=== PATIENT | male | born 1965 | race Caucasian/White ===

== ENCOUNTER 2023-12-24 17:00 | Observation (INO) | payer OTHER, SELFPAY ==
[2023-12-24] VITALS (18 sets, daily range): BP systolic 110–152; BP diastolic 51–88; PULSE 63–91; RESP 13–22; TEMP 36.5–36.7; O2SAT 96–100; BMI 28.6
--- NOTE | ~2023-12-24 | XR_ITS ---
CHEST RADIOGRAPH CLINICAL HISTORY: life vest went off . COMPARISON: 06/10/2014. TECHNIQUE: Single portable view of the chest. FINDINGS Sternal wires and mediastinal clips are identified, the wires are midline and intact. The remainder of the cardiomediastinal silhouette is otherwise unremarkable. The lungs are clear. Visualized osseous structures and soft tissues are unremarkable. IMPRESSION: No focal infiltrate or effusion. Reviewed, dictated and finalized at location A.
--- NOTE | 2023-12-24 17:44 | ECG_ITS ---
Test Date: 2023-12-24 18:00:41 Measurements Intervals [place] Rate: 81 P: 2 AR: 136 QRS: -24 QRSD: 137 T: 85 QT: 393 QTc: 458 Interpretive Statements SINUS RHYTHM WITH OCCASIONAL VENTRICULAR PREMATURE COMPLEXES INTRAVENTRICULAR CONDUCTION DELAY [130+ ms QRS DURATION] No previous ECG available for comparison Electronically Signed On 12-25-2023 15:26:01 CDT by Chanelle Bhatia M.D.
--- NOTE | 2023-12-24 17:52 | ED_ITS ---
HPI - General Adult General Chief complaint: Unspecified Stated complaint: life vest tried to shock me a few times Time Seen by Provider: 12/24/23 17:47 Source: patient and family Mode of arrival: ambulatory Limitations: no limitations History of Present Illness HPI narrative: 58 YEARS OLD WHITE MALE STATUS POST 2 CORONARY STENT PLACEMENT November IN [place]. PATIENT IS TELLING ME THAT HE HAS EJECTION FRACTION WAS 25, PATIENT WAS DISCHARGED ON LIFEVEST, THE PATIENT IS TELLING ME THAT HE WAS DOING QUITE A BIT OF PHYSICAL ACTIVITY FOR THE 1ST TIME SINCE HAD 3 CORONARY STENTS INCLUDING LIFTING AND PUSHING, HIS LIFE VEST GIVE HIM A SHOCK ALARM 4 TIMES OVER A PERIOD OF 10 MINUTES AND H TIME PATIENT WAS ABLE TO DECLINE DISCHARGE BY PUSHING ON THE LIFE VEST BUTTON. PATIENT DENIED ANY SYMPTOMS BEFORE THE ALARM OR DURING THE ALARM OR AFTER THE ALARM. ON ARRIVAL TO THE ED PATIENT IS ASYMPTOMATIC. I WAS ABLE TO LOOK AT HIS SMART PHONE TO SEE THE RHYTHM DURING THE DISTAL ARM WHICH HIGH LIKELY VENTRICUL AR TACHYCARDIA. Related Data Home Medications Medication Instructions Recorded Confirmed aspirin 81 mg tablet,delayed 81 mg PO DAILY 12/24/23 release (Adult Low Dose Aspirin) atorvastatin 40 mg tablet 40 mg PO QHS 12/24/23 carvedilol 3.125 mg tablet 3.125 mg PO Q12H 12/24/23 dapagliflozin propanediol 10 mg 10 mg PO DAILY 12/24/23 tablet (Farxiga) lisinopril 5 mg tablet 5 mg PO DAILY 12/24/23 methocarbamol 750 mg tablet 750 mg PO TID PRN 12/24/23 semaglutide 0.25 mg or 0.5 mg (2 0.25 mg subcut WEEKLY 12/24/23 mg/3 mL) subcutaneous pen injector ticagrelor 90 mg tablet 90 mg PO Q12H 12/24/23 Allergies Allergy/AdvReac Type Severity Reaction Status Date / Time metoprolol Allergy Intermediate RASH/ITCHIN Verified 12/24/23 17:01 G Review of Systems Review of Systems: All systems reviewed & are unremarkable except as noted in HPI and below Exam Narrative: GENERAL APPEARANCE: WELL-DEVELOPED, WELL-NOURISHED SKIN: NORMAL COLOR HEAD: NORMOCEPHALIC, NONTRAUMATIC EYES: CLEAR CONJUNCTIVA ENT: OROPHARYNX NORMAL, EARS NORMAL, NOSE NORMAL NECK: SUPPLE, NONTENDER CHEST AND RESPIRATORY: AIRWAY PATENT, NO RESPIRATORY DISTRESS, NO ACCESSORY MUSCLE USE HEART: REGULAR RATE/RHYTHM ABDOMEN: SOFT, NONTENDER, NO ORGANOMEGALY, QUIET BOWEL SOUNDS VASCULAR: NORMAL PERIPHERAL PULSES, NORMAL CAPILLARY REFILL. 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, NO GROSS MOTOR DEFICIT Course Reevaluation(s) Reevaluation #1: PATIENT STILL ASYMPTOMATIC, WOULD LIKE TO GET A MEAL BEFORE GOING UPSTAIRS Date: 12/24/23 Time: 19:18 Consultations Consultation #1: DR POLLARD Date: 12/24/23 Vital Signs Vital signs: Vital Signs Temperature 36.5 C 12/24/23 17:06 Pulse Rate 63 12/24/23 17:06 Respiratory Rate 16 12/24/23 17:06 Blood Pressure 152/74 H 12/24/23 17:06 Pulse Oximetry 99 12/24/23 17:06 Temperature 36.5 C 12/24/23 17:06 Pulse Rate 63 12/24/23 17:06 Respiratory Rate 18 12/24/23 17:48 Blood Pressure 152/74 H 12/24/23 17:06 Pulse Oximetry 100 12/24/23 17:48 Medical Decision Making MDM Narrative Medical decision making narrative: PATIENT WAS ABOUT TO GET SHOCKED BY HIS LIFE VEST UP TO 4 TIMES OVER A PERIOD OF 10 MINUTES WHILE DOING STRENUOUS PHYSICAL ACTIVITY. PATIENT IS ASYMPTOMATIC ON ARRIVAL TO THE ED VITAL SIGNS ARE STABLE PHYSICAL EXAMINATION SHOWED NO SIGNIFICANT ABNORMALITIES DIFFERENTIAL DIAGNOSIS INCLUDE CARDIAC ARRHYTHMIA, CORONARY ARTERY DISEASE, ELECTROLYTE IMBALANCE, DEHYDRATION BLOOD WORKUP TODAY SHOWED NO ACUTE ABNORMALITIES EKG ON ARRIVAL SHOWED NORMAL SINUS RHYTHM AT 81 BEATS PER MINUTE WITH OCCASIONAL PVCS, LEFT BUNDLE-BRANCH BLOCK, LEFT VENTRICULAR HYPERTROPHY, , NO PREVIOUS EKG AVAILABLE FOR COMPARISON Differential Diagnosis Differential Diagnosis: ABOVE Medical Records Medical records reviewed: Yes I reviewed the external patient's medical records. Vital Signs Vital Signs: Vital Signs Temperature 36.5 C 12/24/23 17:06 Pulse Rate 63 12/24/23 17:06 Respiratory Rate 16 12/24/23 17:06 Blood Pressure 152/74 H 12/24/23 17:06 Pulse Oximetry 99 12/24/23 17:06 Temperature 36.5 C 12/24/23 17:06 Pulse Rate 63 12/24/23 17:06 Respiratory Rate 18 12/24/23 17:48 Blood Pressure 152/74 H 12/24/23 17:06 Pulse Oximetry 100 12/24/23 17:48 Imaging Data Radiologist's impression: Impressions Chest X-Ray 12/24/23 18:31 IMPRESSION: No focal infiltrate or effusion. ECG Data EKG #1: ECG completion date: 12/24/23 Interpretation: NORMAL SINUS RHYTHM AT 81 BEATS PER MINUTE, WITH OCCASIONAL PVCS, LEFT VENTRICULAR HYPERTROPHY, LEFT BUNDLE-BRANCH BLOCK, NO PREVIOUS EKG AVAILABLE FOR COMPARISON Critical Care Time Critical Care Time Critical Care Time: No Discharge Plan Discharge Clinical Impression: Cardiac arrhythmia Patient Disposition: Still a Patient Condition: Stable Prescriptions: No Action aspirin [Adult Low Dose Aspirin] 81 mg tablet,delayed release (DR/EC) 81 mg PO DAILY atorvastatin 40 mg tablet 40 mg PO QHS carvedilol 3.125 mg tablet 3.125 mg PO Q12H Rx Instructions: must administer with a meal/food dapagliflozin propanediol [Farxiga] 10 mg tablet 10 mg PO DAILY lisinopril 5 mg tablet 5 mg PO DAILY methocarbamol 750 mg tablet 750 mg PO TID PRN semaglutide 0.25 mg or 0.5 mg (2 mg/3 mL) pen injector 0.25 mg subcut WEEKLY Rx Instructions: for 4 weeks ticagrelor 90 mg tablet 90 mg PO Q12H Follow-up/Referrals: Marisol,Nato Matson MD [Primary Care Provider] -
[2023-12-24 18:11] LABS: Basophils Percent Auto 0.6 % (0.2-1.2); Eosinophils Absolute Auto 0.3 K/mm3 (0-0.3); Eosinophils Percent Auto 5.2 % (0-4.4); Hematocrit 46.7 % (42.0-52.0); Hemoglobin 17.2 g/dL (14.0-18.0); Immature Granulocyte Absolute 0.04 K/mm3 (0.00-0.031); Immature Granulocyte Percent A 0.6 % (0-0.5); Lymphocytes Absolute Auto 2.53 K/mm3 (0.9-3.2); Lymphocytes Percent Auto 38.4 % (18.3-44.2); Mean Corpuscular HGB Conc 36.8 g/dl (32-36); Mean Corpuscular Hemoglobin 32.3 pg (26-34); Mean Corpuscular Volume 87.8 fl (80-100); Monocytes Absolute Auto 0.5 K/mm3 (0.1-0.6); Monocytes Percent Auto 7.9 % (2.6-8.5); Neutrophils Absolute Auto 3.1 K/mm3 (1.3-6.7); Neutrophils Percent Auto 47.3 % (45.5-73.1); Platelet Count Result 158 k/mm3 (150-375); Red Blood Count 5.32 M/mm3 (4.6-6.20); Red Cell Distribution Width 13.2 % (11.5-14.5); White Blood Count 6.6 K/mm3 (4.5-10.0)
[2023-12-24 18:20] LABS: Alanine Aminotransferase 33 U/L (6-50); Albumin Level 4.7 g/dL (3.5-5.1); Alkaline Phosphatase 68 U/L (38-126); Anion Gap 10 mmol/L (4-12); Aspartate Amino Transferase 26 U/L (17-59); Bilirubin,Total 1.3 mg/dL (0.2-1.3); Blood Urea Nitrogen 13 mg/dL (9-20); Calcium 9.1 mg/dL (8.4-10.2); Carbon Dioxide 25 mmol/L (22-30); Chloride 102 mmol/L (98-107); Estimated CRCL calculation 89 ml/min; Estimated Glomerular Filt Rate > 60; Glucose 143 mg/dL (65-110); Lipase 198 U/L (23-300); Potassium 3.8 mmol/L (3.4-5.0); Sodium 137 mmol/L (137-145)
[2023-12-24 18:21] LABS: Prothrombin Time 13.2 Seconds (11.1-14.7)
[2023-12-24 18:22] LABS: Partial Thromboplastin Time 24.3 Seconds (22.3-36.8)
[2023-12-24 18:32] LABS: Troponin I < 0.012 ng/mL (0.000-0.034)
[2023-12-24] MEDS: AMIODARONE 150 MG/D5W 100 ML 150 MG/100 ML BAG 600 MG IV CONT (18:47)
[2023-12-24] MEDS: AMIODARONE 360 MG/D5W 200 ML 360 MG/200 ML BAG 33.33 MG IV CONT (18:58)
--- NOTE | 2023-12-24 19:06 | P.CONCA_ITS ---
Assessment and Plan Assessment and plan (1) PVT (paroxysmal ventricular tachycardia): Code(s): I47.29 - Other ventricular tachycardia Status: Acute Assessment and Plan: Alerted from Life Vest. Due to ICM. Start Amiodarone drip as per protocol for 24 hours then transition to PO Amiodarone. (2) CAD (coronary artery disease): Code(s): I25.10 - Atherosclerotic heart disease of [place] coronary artery without angina pectoris Status: Acute Assessment and Plan: 12/03/23 [facility] by Dr. Shweta Linder: Prox LAD 20%, mid LAD 99%, OM 70%; PCI to mid LAD and PCI to OM1. Continue dual antiplatelets. (3) Hypertension: Code(s): I10 - Essential (primary) hypertension Status: Acute Assessment and Plan: Stable. (4) Dyslipidemia: Code(s): E78.5 - Hyperlipidemia, unspecified Status: Acute Assessment and Plan: On Atorvastatin. (5) Ischemic cardiomyopathy: Code(s): I25.5 - Ischemic cardiomyopathy Status: Acute Assessment and Plan: In [place], [place] Echo EF 25-29%, apical anterior and apical lateral wall are akinetic, mild TR. Will continue Life Vest upon discharge. Continue Coreg, Jardiance. Stop Lisinopril and will let it wash out for 36 hours and then will start tomorrow night Entresto. History of Present Illness History of Present Illness Consult date/time: 12/24/23 19:06 Reason For Visit: life vest tried to shock me a few times Narrative: 58 yr old man presents to ER with alerts from life vest indicating shocks. He has a history of NSTEMI s/p 2 stents in [place], [place] on 12/03/23, ICM with EF 25- 29%, DM, hypertension, dyslipidemia. present at bedside. He was vacationing in [place] when he had chest pain and went to ER and had NSTEMI. He was discharged home with life vest in place to prevent sudden cardiac arrest. Reports this afternoon at 4:30 pm his life vest alerted him that shock was going to be given but he declined it and it happened 4 times within 10 minutes. Life Vest called him and reported his HR was at 170 bpm during that time. Denies chest pain, sob, palpitations, orthopnea, PND, edema, dizziness. Review of Systems Review of Systems: All systems reviewed & are unremarkable except as noted in HPI and below Constitutional: Constitutional: Reports as per HPI, Denies chills and Denies fever(s) Cardiovascular: Cardiovascular: Reports as per HPI, Denies chest pain, Denies rapid heart rate and Denies irregular heart rhythm Respiratory: Respiratory: Reports as per HPI and Denies dyspnea Gastrointestinal: Gastrointestinal: Reports as per HPI and Denies abdominal pain Genitourinary: Genitourinary: Reports as per HPI and Denies dysuria Musculoskeletal: Musculoskeletal: Reports as per HPI Neurologic: Reports as per HPI, Denies dizziness and Denies syncope Meds Home Medications and Allergies Home Medications Medication Instructions Recorded Confirmed Type aspirin 81 mg tablet,delayed 81 mg PO DAILY 12/24/23 History release (Adult Low Dose Aspirin) atorvastatin 40 mg tablet 40 mg PO QHS 12/24/23 History carvedilol 3.125 mg tablet 3.125 mg PO Q12H 12/24/23 History dapagliflozin propanediol 10 mg 10 mg PO DAILY 12/24/23 History tablet (Farxiga) lisinopril 5 mg tablet 5 mg PO DAILY 12/24/23 History methocarbamol 750 mg tablet 750 mg PO TID PRN 12/24/23 History semaglutide 0.25 mg or 0.5 mg (2 0.25 mg subcut WEEKLY 12/24/23 History mg/3 mL) subcutaneous pen injector ticagrelor 90 mg tablet 90 mg PO Q12H 12/24/23 History Allergies Allergy/AdvReac Type Severity Reaction Status Date / Time metoprolol Allergy Intermediate RASH/ITCHIN Verified 12/24/23 17:01 G Vital Signs Vital Signs - 24 hr 12/24/23 17:06 12/24/23 17:48 12/24/23 18:08 Temperature 97.7 F Pulse Rate 63 83 Respiratory Rate 16 18 20 Blood Pressure 152/74 H 121/77 Pulse Oximetry 99 100 100 12/24/23 18:47 12/24/23 18:57 12/24/23 18:58 Temperature Pulse Rate 87 84 81 Respiratory Rate Blood Pressure 110/51 L 110/71 110/71 Pulse Oximetry Exam Const: General: cooperative, healthy appearing and comfortable Resp: Auscultation: clear to auscultation bilaterally, no crackles, no rales, no rhonchi and no wheezes Cardio: Rate: regular rate Rhythm: regular rhythm Heart sounds: no murmurs Peripheral pulses: dorsalis pedis present GI: GI Palp: No abdominal tenderness and Yes Soft to palpation Neuro: General: oriented to person, oriented to place and oriented to time Extrem: Right lower extremity: no edema Left lower extremity: no edema Results Labs and Meds 12/24/23 18:04 12/24/23 18:04 Lab results: Cardiac Enzymes 12/24/23 Range/Units 18:04 AST 26 (17-59) U/L Troponin I < 0.012 (0.000-0.034) ng/mL Coagulation 12/24/23 Range/Units 18:04 PT 13.2 (11.1-14.7) Seconds APTT 24.3 (22.3-36.8) Seconds CBC 12/24/23 Range/Units 18:04 WBC 6.6 (4.5-10.0) K/mm3 RBC 5.32 (4.6-6.20) M/mm3 Hgb 17.2 (14.0-18.0) g/dL Hct 46.7 (42.0-52.0) % Plt Count 158 (150-375) k/mm3 Lymph # (Auto) 2.53 (0.9-3.2) K/mm3 [place] # (Auto) 0.5 (0.1-0.6) K/mm3 Eos # (Auto) 0.3 (0-0.3) K/mm3 Baso # (Auto) 0.0 (0.0-0.1) K/mm3 Comprehensive Metabolic Panel 12/24/23 Range/Units 18:04 Sodium 137 (137-145) mmol/L Potassium 3.8 (3.4-5.0) mmol/L Chloride 102 (98-107) mmol/L Carbon Dioxide 25 (22-30) mmol/L BUN 13 (9-20) mg/dL Creatinine 0.80 (0.7-1.3) mg/dL Glucose 143 H (65-110) mg/dL Calcium 9.1 (8.4-10.2) mg/dL AST 26 (17-59) U/L ALT 33 (6-50) U/L Alkaline Phosphatase 68 (38-126) U/L Total Protein 8.0 (6.3-8.2) g/dL Albumin 4.7 (3.5-5.1) g/dL Intake and Output 12/24/23 12/24/23 12/24/23 07:59 15:59 23:59 Intake Total 100 Balance 100 Intake: IV 100 Amiodarone 150 mg/D5w 100 ml 100 150 mg In 100 ml @ 15 MG/MIN 600 mls/hr IV CONT .Q10M ONE Rx #:[id number] Patient Weight 12/24/23 23:59 Weight 87.3 kg
[2023-12-24 19:34] LABS: Magnesium 2.2 mg/dL (1.6-2.3)
--- NOTE | 2023-12-24 19:44 | PM.IMHP ---
H&P: HPI History of Present Illness Date/Time: 12/24/23 19:44 Chief Complaint: Attempted LifeVest discharge x4. Narrative: 58-year-old male with a H obesity, CAD, ischemic cardiomyopathy, hypertension, dyslipidemia, gzj-lqlezuu-dpzvyblan diabetes mellitus who presents reporting his LifeVest discharge 4 times on the day of admission 12/24/2023. He had no symptoms. He reports doing some strenuous activity today. He canceled the LifeVest discharge and called EMS and was brought to [facility] ER. EMS reports a heart rate of 170. Further recent history as follows: The patient was vacationing in [place] and at the beginning of December 2023 he had chest pain and went to an ER and found to have NSTEMI. At that time the patient had a cardiac catheterization and he is status post 2 stents on 12/03/2023. Echo revealed ischemic cardiomyopathy with EF 25-30%. This is all new diagnosis to the patient. He was discharged on a LifeVest. He has been compliant with his medications since then but not his exercise restriction. The patient showed his iPhone to the ER physician Dr. Cannon and it is reported this appeared to be V-tach. The patient lives in [place] and his PCP is not in her network but he was set to see cardiology Dr. Garnett in a few weeks and therefore Dr. Garnett was consulted. Review of Systems Review of Systems: All systems reviewed & are unremarkable except as noted in HPI and below (Subjective) Meds Home Medications and Allergies Home Medications Medication Instructions Recorded Confirmed Type aspirin 81 mg tablet,delayed 81 mg PO DAILY 12/24/23 History release (Adult Low Dose Aspirin) atorvastatin 40 mg tablet 40 mg PO QHS 12/24/23 History carvedilol 3.125 mg tablet 3.125 mg PO Q12H 12/24/23 History dapagliflozin propanediol 10 mg 10 mg PO DAILY 12/24/23 History tablet (Farxiga) lisinopril 5 mg tablet 5 mg PO DAILY 12/24/23 History methocarbamol 750 mg tablet 750 mg PO TID PRN 12/24/23 History semaglutide 0.25 mg or 0.5 mg (2 0.25 mg subcut WEEKLY 12/24/23 History mg/3 mL) subcutaneous pen injector ticagrelor 90 mg tablet 90 mg PO Q12H 12/24/23 History Allergies Allergy/AdvReac Type Severity Reaction Status Date / Time metoprolol Allergy Intermediate RASH/ITCHIN Verified 12/24/23 17:01 G Vital Signs Vital Signs - 24 hr 12/24/23 17:06 12/24/23 17:48 12/24/23 18:08 Temperature 97.7 F Pulse Rate 63 83 Respiratory Rate 16 18 20 Blood Pressure 152/74 H 121/77 Pulse Oximetry 99 100 100 12/24/23 18:47 12/24/23 18:57 12/24/23 18:58 Temperature Pulse Rate 87 84 81 Respiratory Rate Blood Pressure 110/51 L 110/71 110/71 Pulse Oximetry 12/24/23 17:27 12/24/23 17:46 12/24/23 18:28 Temperature Pulse Rate 91 85 85 Respiratory Rate 20 20 22 H Blood Pressure 138/59 L 121/62 110/51 L Pulse Oximetry 97 96 97 12/24/23 18:41 12/24/23 19:01 12/24/23 19:12 Temperature Pulse Rate 87 83 85 Respiratory Rate 13 15 Blood Pressure 110/71 144/88 H Pulse Oximetry 98 98 12/24/23 19:40 Temperature Pulse Rate 86 Respiratory Rate 14 Blood Pressure 127/85 Pulse Oximetry 97 Exam Const: General: comfortable and no acute distress Other: A&O x3 HENMT: Mouth: Yes moist mucous membranes Eyes: Pupils: Equal, round and reactive pupils present Neck: Neck: supple Resp: Effort & Inspection: normal respiratory effort Auscultation: clear to auscultation bilaterally Cardio: Rate: regular rate Rhythm: regular rhythm Heart sounds: no gallops, no murmurs and no rubs GI: GI Palp: Yes Soft to palpation and No Tenderness to palpation present (GI) Other: Protuberant abdomen : General: Yes bladder normal to palpation Neuro: Motor exam (neuro): 5/5 motor strength present throughout Extrem: General: no edema Other: Pedal pulses palpable H&P: Results Labs Labs: Short CBC 12/24/23 Range/Units 18:04 WBC 6.6 (4.5-10.0) K/mm3 Hgb 17.2 (14.0-18.0) g/dL Hct 46.7 (42.0-52.0) % Plt Count 158 (150-375) k/mm3 [facility] 12/24/23 18:04 Sodium 137 Potassium 3.8 Chloride 102 Carbon Dioxide 25 BUN 13 Creatinine 0.80 Glucose 143 H Calcium 9.1 Cardiac Enzymes 12/24/23 Range/Units 18:04 Troponin I < 0.012 (0.000-0.034) ng/mL Liver Function 12/24/23 Range/Units 18:04 Total Bilirubin 1.3 (0.2-1.3) mg/dL AST 26 (17-59) U/L ALT 33 (6-50) U/L Alkaline Phosphatase 68 (38-126) U/L Albumin 4.7 (3.5-5.1) g/dL Assessment and Plan Assessment and plan (1) Cardiac arrhythmia: Code(s): I49.9 - Cardiac arrhythmia, unspecified Status: Acute (2) Ischemic cardiomyopathy: Code(s): I25.5 - Ischemic cardiomyopathy Status: Acute (3) Diabetes: Code(s): E11.9 - Type 2 diabetes mellitus without complications Status: Acute (4) Dyslipidemia: Code(s): E78.5 - Hyperlipidemia, unspecified Status: Acute (5) Hypertension: Code(s): I10 - Essential (primary) hypertension Status: Acute (6) CAD (coronary artery disease): Code(s): I25.10 - Atherosclerotic heart disease of [place] coronary artery without angina pectoris Status: Acute (7) PVT (paroxysmal ventricular tachycardia): Code(s): I47.29 - Other ventricular tachycardia Status: Acute Plan 58-year-old male with a [facility] obesity, CAD, ischemic cardiomyopathy, hypertension, dyslipidemia, acu-gdgdzjs-pwbxkrwrm diabetes mellitus who presents reporting his LifeVest discharge 4 times on the day of admission 12/24/2023. He had no symptoms. He reports doing some strenuous activity today. He canceled the LifeVest discharge and called EMS and was brought to [facility] ER. EMS reports a heart rate of 170. Further recent history as follows: The patient was vacationing in [place] and at the beginning of December 2023 he had chest pain and went to an ER and found to have NSTEMI. At that time the patient had a cardiac catheterization and he is status post 2 stents on 12/03/2023. Echo revealed ischemic cardiomyopathy with EF 25-30%. This is all new diagnosis to the patient. He was discharged on a LifeVest. He has been compliant with his medications since then but not his exercise restriction. The patient showed his iPhone to the ER physician Dr. Cannon and it is reported this appeared to be V-tach. The patient lives in [place] and his PCP is not in her network but he was set to see cardiology Dr. Garnett in a few weeks and therefore Dr. Garnett was consulted. ----- EKG in the ER demonstrating normal sinus rhythm with multiple PVCs. Intraventricular conduction delay. Potassium 3.8. Will check a magnesium as well. Amiodarone infusion started. Cardiology consultation appreciated. Follow the recommendations. Agree with those. Patient reports he is on Brilinta so will restart that in addition to the aspirin which has already been started. Continue atorvastatin. Discontinue lisinopril and start Entresto. Continue Coreg and Jardiance. Plan to transition to p.o. amiodarone in the morning. Admit to medical floor with telemetry. Accu-Cheks a.c. HS and low-dose insulin sliding scale. ----- Saline lock IV, cardiac diet, carbohydrate consistent diet SCDs Patient wishes to be full code Lives with spouse in [place]. Denies recreational drug use, tobacco abuse, alcohol use. Denies large amount of caffeine intake. Denies energy drinks consumption. At baseline he is independent and does not use assistive devices for ambulation. Hospitalist MIPS Advance Care Plan I have confirmed that the patient's Advanced Care Plan is present, code status is documented, or surrogate decision maker is listed in patient medical record.: Yes Medication Reconciliation I have utilized all available resources to obtain, update and review the patients current medications (includes all prescriptions, OTC, herbals, cannabis, and nutritional supplements).: Yes
--- NOTE | 2023-12-24 20:40 | ADMGEN ---
This patient, Ender Emmanuel, was admitted to IMU Room 211-01. Patient/family oriented to hospital policies and general routines including ID bracelet, bed and alarms, visiting hours, pain management, procedures, bathroom and other care routines, personal items, smoking policy, room service/diet, and visiting hours. Information on how to activate the Rapid Response Team has been discussed. Patient/Family are encouraged to report perceived risks to care and to ask questions if they do not understand what they are told or what they should do.
[2023-12-24 20:58] LABS: Glucose Point of Care 260 mg/dl (65-105)
--- NOTE | 2023-12-24 21:36 | ADMGEN ---
This patient, Ender Emmanuel, was admitted to IMU Room 211-01 on 12/24/23 at 2040. Patient/family oriented to hospital policies and general routines including ID bracelet, bed and alarms, visiting hours, pain management, procedures, bathroom and other care routines, personal items, smoking policy, room service/diet, and visiting hours. Information on how to activate the Rapid Response Team has been discussed. Patient/Family are encouraged to report perceived risks to care and to ask questions if they do not understand what they are told or what they should do.
[2023-12-24] MEDS: carvediloL 3.125 MG TABLET PO (22:45)
[2023-12-24] MEDS: TICAGRELOR 90 MG TABLET PO (22:46)
[2023-12-24] MEDS: INSULIN ASPART (*BKC) 100 UNITS/ML SUB-Q (22:46)
[2023-12-25] VITALS (16 sets, daily range): BP systolic 96–118; BP diastolic 52–78; PULSE 71–85; RESP 16–18; TEMP 36.4–37.1; O2SAT 95–99; BMI 27.0
[2023-12-25] MEDS: AMIODARONE 360 MG/D5W 200 ML 360 MG/200 ML BAG 16.67 MG IV CONT ×2 (00:44→12:38)
[2023-12-25 05:18] LABS: Anion Gap 7 mmol/L (4-12); Blood Urea Nitrogen 13 mg/dL (9-20); Calcium 8.5 mg/dL (8.4-10.2); Carbon Dioxide 28 mmol/L (22-30); Chloride 101 mmol/L (98-107); Estimated CRCL calculation 80 ml/min; Estimated Glomerular Filt Rate > 60; Glucose 129 mg/dL (65-110); Magnesium 2.2 mg/dL (1.6-2.3); Potassium 3.8 mmol/L (3.4-5.0); Sodium 136 mmol/L (137-145)
--- NOTE | 2023-12-25 06:20 | ECG_ITS ---
Test Date: 2023-12-25 08:16:48 Measurements Intervals [place] Rate: 73 P: 14 [place]: 146 QRS: 89 QRSD: 138 T: 78 QT: 440 QTc: 488 Interpretive Statements SINUS RHYTHM WITH OCCASIONAL VENTRICULAR PREMATURE COMPLEXES INDETERMINATE AXIS INTRAVENTRICULAR CONDUCTION DELAY [130+ ms QRS DURATION] ANTERIOR MYOCARDIAL INFARCTION , OF INDETERMINATE AGE [40+ ms Q WAVE AND/OR ST/T ABNORMALITY IN V3/V4] Compared to ECG 12/24/2023 18:00:41 NO SIGNIFICANT CHANGES Electronically Signed On 12-25-2023 15:36:02 CDT by Chanelle Bhatia M.D.
--- NOTE | 2023-12-25 07:55 | PM.PNCARD ---
Progress Note: A&P Assessment and Plan (1) PVT (paroxysmal ventricular tachycardia): Code(s): I47.29 - Other ventricular tachycardia Status: Acute Assessment and Plan: Alerted from Life Vest. Due to ICM. Started Amiodarone drip as per protocol for 24 hours then transition to PO Amiodarone at 200 mg BID. Check EKG, TSH. If telemetry shows no arrhythmias by this evening will stop Amiodarone drip. F/U with me within a week. (2) CAD (coronary artery disease): Code(s): I25.10 - Atherosclerotic heart disease of [place] coronary artery without angina pectoris Status: Acute Assessment and Plan: 12/03/[address] [facility] [address] Shweta Linder: Prox LAD 20%, mid LAD 99%, OM 70%; PCI to mid LAD and PCI to OM1. Check lipid panel. Continue dual antiplatelets, uninterrupted. (3) Hypertension: Code(s): I10 - Essential (primary) hypertension Status: Acute Assessment and Plan: Stable. (4) Dyslipidemia: Code(s): E78.5 - Hyperlipidemia, unspecified Status: Acute Assessment and Plan: On Atorvastatin. (5) Ischemic cardiomyopathy: Code(s): I25.5 - Ischemic cardiomyopathy Status: Acute Assessment and Plan: In [place], [place] Echo EF 25-29%, apical anterior and apical lateral wall are akinetic, mild TR. Will continue Life Vest upon discharge. Continue Coreg, Jardiance. Stopped Lisinopril and will let it wash out for 36 hours and then will start Entresto 24-26 mg BID starting this evening. Subjective Date/time seen: 12/25/23 07:55 Interval history: Denies chest pain, sob, palpitations. Exam Const: General: cooperative, healthy appearing and comfortable Orientation/consciousness: oriented to person, oriented to place and oriented to time Resp: Auscultation: clear to auscultation bilaterally, no crackles, no rales, no rhonchi and no wheezes Cardio: Rate: regular rate Rhythm: regular rhythm Heart sounds: no murmurs Peripheral pulses: dorsalis pedis present Neuro: General: oriented to person, oriented to place and oriented to time Extrem: Right lower extremity: no edema Left lower extremity: no edema Objective Data Vital Signs Vital Signs: Vital Signs - 24 hr 12/24/23 17:06 12/24/23 17:48 12/24/23 18:08 Temperature 97.7 F Pulse Rate 63 83 Respiratory Rate 16 18 20 Blood Pressure 152/74 H 121/77 Pulse Oximetry 99 100 100 Oxygen Delivery 12/24/23 18:47 12/24/23 18:57 12/24/23 18:58 Temperature Pulse Rate 87 84 81 Respiratory Rate Blood Pressure 110/51 L 110/71 110/71 Pulse Oximetry Oxygen Delivery 12/24/23 17:27 12/24/23 17:46 12/24/23 18:28 Temperature Pulse Rate 91 85 85 Respiratory Rate 20 20 22 H Blood Pressure 138/59 L 121/62 110/51 L Pulse Oximetry 97 96 97 Oxygen Delivery 12/24/23 18:41 12/24/23 19:01 12/24/23 19:12 Temperature Pulse Rate 87 83 85 Respiratory Rate 13 15 Blood Pressure 110/71 144/88 H Pulse Oximetry 98 98 Oxygen Delivery 12/24/23 19:40 12/24/23 20:21 12/24/23 20:43 Temperature 98.1 F Pulse Rate 86 88 79 Respiratory Rate 14 17 18 Blood Pressure 127/85 122/60 130/75 Pulse Oximetry 97 96 97 Oxygen Delivery 12/24/23 20:00 12/24/23 22:45 12/25/23 00:12 Temperature 98.1 F Pulse Rate 84 79 75 Respiratory Rate 18 Blood Pressure 103/60 Pulse Oximetry 96 Oxygen Delivery 12/25/23 00:00 12/25/23 00:00 12/24/23 22:00 Temperature Pulse Rate 73 73 78 Respiratory Rate 18 Blood Pressure Pulse Oximetry 96 Oxygen Delivery Room Air 12/25/23 00:00 12/25/23 00:44 12/25/23 02:00 Temperature Pulse Rate 73 78 75 Respiratory Rate 16 Blood Pressure 103/58 L 96/52 L Pulse Oximetry 95 Oxygen Delivery 12/25/23 02:00 12/25/23 04:10 12/25/23 04:00 Temperature 98.6 F Pulse Rate 75 73 71 Respiratory Rate 16 Blood Pressure 96/52 L 109/59 L Pulse Oximetry 97 Oxygen Delivery 12/25/23 04:00 12/25/23 04:00 12/25/23 06:00 Temperature Pulse Rate 73 71 Respiratory Rate 16 Blood Pressure 118/70 Pulse Oximetry 97 Oxygen Delivery Room Air 12/25/23 06:00 Temperature Pulse Rate 71 Respiratory Rate Blood Pressure 118/70 Pulse Oximetry Oxygen Delivery Intake/Output Intake/Output: Intake & Output 12/22/23 12/23/23 12/24/23 12/25/23 23:59 23:59 23:59 23:59 Intake Total 201.1 704.4 Output Total 300 Balance 201.1 404.4 Meds/Results Medications: Active Medications Generic Name Dose Route Start Last Admin Trade Name Freq PRN Reason Stop Dose Admin Acetaminophen 650 mg 12/24/23 19:29 Acetaminophen 325 Mg Tablet PO Q4H PRN Mild Pain (1-3) or Fever Aspirin 81 mg 12/25/23 08:00 Aspirin 81 Mg Chewable Tablet PO DAILY@0800 [facility] Atorvastatin Calcium 40 mg 12/25/23 21:00 Atorvastatin 40 Mg Tablet PO QHS [facility]1983 Carvedilol 3.125 mg 12/24/23 21:00 12/24/23 22:45 Carvedilol 3.125 Mg Tablet PO 3.125 mg Q12H [facility]1983 Administration Dextrose 12.5 gm 12/24/23 19:43 Dextrose 50% 25 Gm/50 Ml Syringe IV PUSH PRN PRN Hypoglycemia Protocol Empagliflozin 10 mg 12/25/23 09:00 Empagliflozin 10 Mg Tablet PO DAILY [facility] Glucagon 1 mg 12/24/23 19:43 Glucagon For Inj 1 Mg Vial IM PRN PRN Hypoglycemia Protocol Glucose 15 gm 12/24/23 19:43 Glucose Oral Gel 15 Gm Of Glucse In 37.5 Gm Tube PO PRN PRN Hypoglycemia Protocol Amiodarone HCl/Dextrose 360 mg in 200 mls @ 16.667 mls/hr 12/25/23 00:09 12/25/23 06:00 Nexterone 360 Mg/D5w 200 Ml IV CONT 0.5 mg/min .Q12H FARIDEH 16.67 mls/hr Infusion 0.5 MG/MIN Dextrose 1,000 mls @ 100 mls/hr 12/24/23 19:43 Dextrose 5% 1,000 Ml IVPB PRN PRN Hypoglycemia Protocol Insulin Aspart 2 - 5 units 12/25/23 08:00 Insulin Aspart (*Bkc) 100 Units/Ml SUB-Q TIDWM [facility] Protocol Insulin Aspart 1 - 2 units 12/24/23 21:00 12/24/23 22:46 Insulin Aspart (*Bkc) 100 Units/Ml SUB-Q 1 units HS FARIDEH Administration Protocol Sacubitril/Valsartan 1 tab 12/25/23 21:00 Sacubitril/Valsartan 24-26 Mg Tablet PO Q12HR FARIDEH Ticagrelor 90 mg 12/24/23 21:00 12/24/23 22:46 Ticagrelor 90 Mg Tablet PO 90 mg Q12H FARIDEH Administration Radiology Results: ITS Impressions Chest X-Ray 12/24/23 18:31 IMPRESSION: No focal infiltrate or effusion. Labs Labs: Laboratory Results - last 24 hr 12/24/23 12/24/23 12/24/23 18:03 18:04 20:54 WBC 6.6 RBC 5.32 Hgb 17.2 Hct 46.7 MCV 87.8 MCH 32.3 MCHC 36.8 H RDW 13.2 Plt Count 158 MPV 10.0 Immature Gran % (Auto) 0.6 H Neut % (Auto) 47.3 Lymph % (Auto) 38.4 [place] % (Auto) 7.9 Eos % (Auto) 5.2 H Baso % (Auto) 0.6 Lymph # (Auto) 2.53 [place] # (Auto) 0.5 Eos # (Auto) 0.3 Baso # (Auto) 0.0 Abs Immat Gran (auto) 0.04 H Absolute Neuts (auto) 3.1 Absolute Nucleated RBC 0.000 Nucleated RBC % 0.0 PT 13.2 INR 1.0 APTT 24.3 Sodium 137 Potassium 3.8 Chloride 102 Carbon Dioxide 25 Anion Gap 10 BUN 13 Creatinine 0.80 Estim Creat Clear Calc 89 Estimated GFR > 60 Glucose 143 H POC Capillary Glucose 260 H Calcium 9.1 Magnesium 2.2 Total Bilirubin 1.3 AST 26 ALT 33 Alkaline Phosphatase 68 Troponin I < 0.012 Total Protein 8.0 Albumin 4.7 Lipase 198 12/25/23 04:40 WBC RBC Hgb Hct MCV MCH MCHC RDW Plt Count MPV Immature Gran % (Auto) Neut % (Auto) Lymph % (Auto) [place] % (Auto) Eos % (Auto) Baso % (Auto) Lymph # (Auto) [place] # (Auto) Eos # (Auto) Baso # (Auto) Abs Immat Gran (auto) Absolute Neuts (auto) Absolute Nucleated RBC Nucleated RBC % PT INR APTT Sodium 136 L Potassium 3.8 Chloride 101 Carbon Dioxide 28 Anion Gap 7 BUN 13 Creatinine 0.90 Estim Creat Clear Calc 80 Estimated GFR > 60 Glucose 129 H POC Capillary Glucose Calcium 8.5 Magnesium 2.2 Total Bilirubin AST ALT Alkaline Phosphatase Troponin I Total Protein Albumin Lipase
[2023-12-25 09:07] LABS: Glucose Point of Care 149 mg/dl (65-105)
[2023-12-25] MEDS: ASPIRIN 81 MG CHEWABLE TABLET PO (09:39)
[2023-12-25] MEDS: carvediloL 3.125 MG TABLET PO (09:39)
[2023-12-25] MEDS: TICAGRELOR 90 MG TABLET PO (09:40)
[2023-12-25] MEDS: EMPAGLIFLOZIN 10 MG TABLET PO (09:52)
--- NOTE | 2023-12-25 09:58 | PM.IMPN ---
Progress Note: A&P Assessment and Plan (1) Cardiac arrhythmia: Code(s): I49.9 - Cardiac arrhythmia, unspecified Status: Acute (2) Ischemic cardiomyopathy: Code(s): I25.5 - Ischemic cardiomyopathy Status: Acute (3) Diabetes: Code(s): E11.9 - Type 2 diabetes mellitus without complications Status: Acute (4) Dyslipidemia: Code(s): E78.5 - Hyperlipidemia, unspecified Status: Acute (5) Hypertension: Code(s): I10 - Essential (primary) hypertension Status: Acute (6) CAD (coronary artery disease): Code(s): I25.10 - Atherosclerotic heart disease of [place] coronary artery without angina pectoris Status: Acute (7) PVT (paroxysmal ventricular tachycardia): Code(s): I47.29 - Other ventricular tachycardia Status: Acute Plan 58-year-old male with a H obesity, CAD, ischemic cardiomyopathy, hypertension, dyslipidemia, [id number] diabetes mellitus who presents reporting his LifeVest discharge 4 times on the day of admission 12/24/2023. He had no symptoms. He reports doing some strenuous activity today. He canceled the LifeVest discharge and called EMS and was brought to [facility] ER. EMS reports a heart rate of 170. Further recent history as follows: The patient was vacationing in [place] and at the beginning of December 2023 he had chest pain and went to an ER and found to have NSTEMI. At that time the patient had a cardiac catheterization and he is status post 2 stents on 12/03/2023. Echo revealed ischemic cardiomyopathy with EF 25-30%. This is all new diagnosis to the patient. He was discharged on a LifeVest. He has been compliant with his medications since then but not his exercise restriction. The patient showed his iPhone to the ER physician Dr. Cannon and it is reported this appeared to be V-tach. The patient lives in [place] and his PCP is not in her network but he was set to see cardiology Dr. Garnett in a few weeks and therefore Dr. Garnett was consulted. ----- EKG in the ER demonstrating normal sinus rhythm with multiple PVCs. Intraventricular conduction delay. Potassium 3.8. Will check a magnesium as well. Amiodarone infusion started. Cardiology consultation appreciated. Follow the recommendations. Agree with those. Patient reports he is on Brilinta so will restart that in addition to the aspirin which has already been started. Continue atorvastatin. Discontinue lisinopril and start Entresto. Continue Coreg and Jardiance. Plan to transition to p.o. amiodarone in the morning. Admit to medical floor with telemetry. Accu-Cheks a.c. HS and low-dose insulin sliding scale. 12/24: Cardiology was consulted, started on Amiodarone drip, if no arrhythmias by this evening will d/c the drip and will be transitioned to oral.Will continue Life Vest upon discharge. Also d/c lisinopril and start Entresto 24-26 mg BID by this evening. ----- Saline lock IV, cardiac diet, carbohydrate consistent diet SCDs Patient wishes to be full code Lives with spouse in [place]. Denies recreational drug use, tobacco abuse, alcohol use. Denies large amount of caffeine intake. Denies energy drinks consumption. At baseline he is independent and does not use assistive devices for ambulation. Subjective Date/time seen: 12/25/23 09:58 Interval history: 58-year-old male with a H obesity, CAD, ischemic cardiomyopathy, hypertension, dyslipidemia, [id number]-akeebionw diabetes mellitus who presents reporting his LifeVest discharge 4 times on the day of admission 12/24/2023. He had no symptoms. He reports doing some strenuous activity today. He canceled the LifeVest discharge and called EMS and was brought to [facility] ER. EMS reports a heart rate of 170. Further recent history as follows: The patient was vacationing in [place] and at the beginning of December 2023 he had chest pain and went to an ER and found to have NSTEMI. At that time the patient had a cardiac catheterization and he is status post 2 stents on 12/03/2023. Echo revealed ischemic cardiomyopathy with EF 25-30%. This is all new diagnosis to the patient. He was discharged on a LifeVest. He has been compliant with his medications since then but not his exercise restriction. The patient showed his iPhone to the ER physician Dr. Cannon and it is reported this appeared to be V-tach. The patient lives in [place] and his PCP is not in her network but he was set to see cardiology Dr. Garnett in a few weeks and therefore Dr. Garnett was consulted. Cardiology was consulted, started on Amiodarone drip, if no arrhythmias by this evening will d/c the drip and will be transitioned to oral.Will continue Life Vest upon discharge. Also d/c lisinopril and start Entresto 24-26 mg BID by this evening. Exam Const: General: comfortable and no acute distress Other: A&O x3 HENMT: Mouth: Yes moist mucous membranes Eyes: Pupils: Equal, round and reactive pupils present Neck: Neck: supple Resp: Effort & Inspection: normal respiratory effort Auscultation: clear to auscultation bilaterally Cardio: Rate: regular rate Rhythm: regular rhythm Heart sounds: no gallops, no murmurs and no rubs GI: Other: Protuberant abdomen : General: Yes bladder normal to palpation Neuro: Cranial nerves: Yes Equal, round and reactive pupils present Motor exam (neuro): 5/5 motor strength present throughout Extrem: General: no edema Other: Pedal pulses palpable Objective Data Vital Signs Vital Signs: Vital Signs - 24 hr 12/24/23 17:06 12/24/23 17:48 12/24/23 18:08 Temperature 97.7 F Pulse Rate 63 83 Respiratory Rate 16 18 20 Blood Pressure 152/74 H 121/77 Pulse Oximetry 99 100 100 Oxygen Delivery 12/24/23 18:47 12/24/23 18:57 12/24/23 18:58 Temperature Pulse Rate 87 84 81 Respiratory Rate Blood Pressure 110/51 L 110/71 110/71 Pulse Oximetry Oxygen Delivery 12/24/23 17:27 12/24/23 17:46 12/24/23 18:28 Temperature Pulse Rate 91 85 85 Respiratory Rate 20 20 22 H Blood Pressure 138/59 L 121/62 110/51 L Pulse Oximetry 97 96 97 Oxygen Delivery 12/24/23 18:41 12/24/23 19:01 12/24/23 19:12 Temperature Pulse Rate 87 83 85 Respiratory Rate 13 15 Blood Pressure 110/71 144/88 H Pulse Oximetry 98 98 Oxygen Delivery 12/24/23 19:40 12/24/23 20:21 12/24/23 20:43 Temperature 98.1 F Pulse Rate 86 88 79 Respiratory Rate 14 17 18 Blood Pressure 127/85 122/60 130/75 Pulse Oximetry 97 96 97 Oxygen Delivery 12/24/23 20:00 12/24/23 22:45 12/25/23 00:12 Temperature 98.1 F Pulse Rate 84 79 75 Respiratory Rate 18 Blood Pressure 103/60 Pulse Oximetry 96 Oxygen Delivery 12/25/23 00:00 12/25/23 00:00 12/24/23 22:00 Temperature Pulse Rate 73 73 78 Respiratory Rate 18 Blood Pressure Pulse Oximetry 96 Oxygen Delivery Room Air 12/25/23 00:00 12/25/23 00:44 12/25/23 02:00 Temperature Pulse Rate 73 78 75 Respiratory Rate 16 Blood Pressure 103/58 L 96/52 L Pulse Oximetry 95 Oxygen Delivery 12/25/23 02:00 12/25/23 04:10 12/25/23 04:00 Temperature 98.6 F Pulse Rate 75 73 71 Respiratory Rate 16 Blood Pressure 96/52 L 109/59 L Pulse Oximetry 97 Oxygen Delivery 12/25/23 04:00 12/25/23 04:00 12/25/23 06:00 Temperature Pulse Rate 73 71 Respiratory Rate 16 Blood Pressure 118/70 Pulse Oximetry 97 Oxygen Delivery Room Air 12/25/23 06:00 12/25/23 08:00 12/25/23 08:00 Temperature 98.3 F Pulse Rate 71 73 85 Respiratory Rate 18 Blood Pressure 118/70 115/76 Pulse Oximetry 98 Oxygen Delivery 12/25/23 09:39 Temperature Pulse Rate 81 Respiratory Rate Blood Pressure Pulse Oximetry Oxygen Delivery Intake/Output Intake/Output: Intake & Output 12/22/23 12/23/23 12/24/23 12/25/23 23:59 23:59 23:59 23:59 Intake Total 201.1 944.4 Output Total 300 Balance 201.1 644.4 Meds/Results Medications: Active Medications Generic Name Dose Route Start Last Admin Trade Name Freq PRN Reason Stop Dose Admin Acetaminophen 650 mg 12/24/23 19:29 Acetaminophen 325 Mg Tablet PO Q4H PRN Mild Pain (1-3) or Fever Aspirin 81 mg 12/25/23 08:00 12/25/23 09:39 Aspirin 81 Mg Chewable Tablet PO 81 mg DAILY@0800 [facility] Administration Atorvastatin Calcium 40 mg 12/25/23 21:00 Atorvastatin 40 Mg Tablet PO QHS [facility] Carvedilol 3.125 mg 12/24/23 21:00 12/25/23 09:39 Carvedilol 3.125 Mg Tablet PO 3.125 mg Q12H FARIDEH Administration Dextrose 12.5 gm 12/24/23 19:43 Dextrose 50% 25 Gm/50 Ml Syringe IV PUSH PRN PRN Hypoglycemia Protocol Empagliflozin 10 mg 12/25/23 09:00 12/25/23 09:52 Empagliflozin 10 Mg Tablet PO 10 mg DAILY FARIDEH Administration Glucagon 1 mg 12/24/23 19:43 Glucagon For Inj 1 Mg Vial IM PRN PRN Hypoglycemia Protocol Glucose 15 gm 12/24/23 19:43 Glucose Oral Gel 15 Gm Of Glucse In 37.5 Gm Tube PO PRN PRN Hypoglycemia Protocol Amiodarone HCl/Dextrose 360 mg in 200 mls @ 16.667 mls/hr 12/25/23 00:09 12/25/23 06:00 Nexterone 360 Mg/D5w 200 Ml IV CONT 0.5 mg/min .Q12H FARIDEH 16.67 mls/hr Infusion 0.5 MG/MIN Dextrose 1,000 mls @ 100 mls/hr 12/24/23 19:43 Dextrose 5% 1,000 Ml IVPB PRN PRN Hypoglycemia Protocol Insulin Aspart 2 - 5 units 12/25/23 08:00 12/25/23 09:39 Insulin Aspart (*Bkc) 100 Units/Ml SUB-Q Not Given TIDWM FARIDEH Protocol Insulin Aspart 1 - 2 units 12/24/23 21:00 12/24/23 22:46 Insulin Aspart (*Bkc) 100 Units/Ml SUB-Q 1 units HS FARIDEH Administration Protocol Sacubitril/Valsartan 1 tab 12/25/23 21:00 Sacubitril/Valsartan 24-26 Mg Tablet PO Q12HR [facility] Ticagrelor 90 mg 12/24/23 21:00 12/25/23 09:40 Ticagrelor 90 Mg Tablet PO 90 mg Q12H FARIDEH Administration Radiology Results: ITS Impressions Chest X-Ray 12/24/23 18:31 IMPRESSION: No focal infiltrate or effusion. Labs Labs: Laboratory Results - last 24 hr 12/24/23 12/24/23 12/24/23 18:03 18:04 20:54 WBC 6.6 RBC 5.32 Hgb 17.2 Hct 46.7 MCV 87.8 MCH 32.3 MCHC 36.8 H RDW 13.2 Plt Count 158 MPV 10.0 Immature Gran % (Auto) 0.6 H Neut % (Auto) 47.3 Lymph % (Auto) 38.4 [place] % (Auto) 7.9 Eos % (Auto) 5.2 H Baso % (Auto) 0.6 Lymph # (Auto) 2.53 [place] # (Auto) 0.5 Eos # (Auto) 0.3 Baso # (Auto) 0.0 Abs Immat Gran (auto) 0.04 H Absolute Neuts (auto) 3.1 Absolute Nucleated RBC 0.000 Nucleated RBC % 0.0 PT 13.2 INR 1.0 APTT 24.3 Sodium 137 Potassium 3.8 Chloride 102 Carbon Dioxide 25 Anion Gap 10 BUN 13 Creatinine 0.80 Estim Creat Clear Calc 89 Estimated GFR > 60 Glucose 143 H POC Capillary Glucose 260 H Calcium 9.1 Magnesium 2.2 Total Bilirubin 1.3 AST 26 ALT 33 Alkaline Phosphatase 68 Troponin I < 0.012 Total Protein 8.0 Albumin 4.7 Lipase 198 12/25/23 12/25/23 04:40 07:34 WBC RBC Hgb Hct MCV MCH MCHC RDW Plt Count MPV Immature Gran % (Auto) Neut % (Auto) Lymph % (Auto) [place] % (Auto) Eos % (Auto) Baso % (Auto) Lymph # (Auto) [place] # (Auto) Eos # (Auto) Baso # (Auto) Abs Immat Gran (auto) Absolute Neuts (auto) Absolute Nucleated RBC Nucleated RBC % PT INR APTT Sodium 136 L Potassium 3.8 Chloride 101 Carbon Dioxide 28 Anion Gap 7 BUN 13 Creatinine 0.90 Estim Creat Clear Calc 80 Estimated GFR > 60 Glucose 129 H POC Capillary Glucose 149 H Calcium 8.5 Magnesium 2.2 Total Bilirubin AST ALT Alkaline Phosphatase Troponin I Total Protein Albumin Lipase Hospitalist MIPS Advance Care Plan I have confirmed that the patient's Advanced Care Plan is present, code status is documented, or surrogate decision maker is listed in patient medical record.: Yes Medication Reconciliation I have utilized all available resources to obtain, update and review the patients current medications (includes all prescriptions, OTC, herbals, cannabis, and nutritional supplements).: Yes
[2023-12-25 11:28] LABS: Glucose Point of Care 141 mg/dl (65-105)
[2023-12-25 16:38] LABS: Glucose Point of Care 121 mg/dl (65-105)
[2023-12-25] MEDS: AMIODARONE HCL 200 MG TABLET PO (17:00)
--- NOTE | 2023-12-25 18:08 | P.DS_ITS ---
DS: Admitting Diagnosis Discharge Date 12/25/2023 Admitting Diagnosis ventricular tachycardia DS: Discharge Diagnosis Discharge Diagnosis (1) Cardiac arrhythmia: Code(s): I49.9 - Cardiac arrhythmia, unspecified Status: Acute (2) Ischemic cardiomyopathy: Code(s): I25.5 - Ischemic cardiomyopathy Status: Acute (3) Diabetes: Code(s): E11.9 - Type 2 diabetes mellitus without complications Status: Acute (4) Dyslipidemia: Code(s): E78.5 - Hyperlipidemia, unspecified Status: Acute (5) Hypertension: Code(s): I10 - Essential (primary) hypertension Status: Acute (6) CAD (coronary artery disease): Code(s): I25.10 - Atherosclerotic heart disease of [place] coronary artery without angina pectoris Status: Acute (7) PVT (paroxysmal ventricular tachycardia): Code(s): I47.29 - Other ventricular tachycardia Status: Acute DS: Summary Hospital Course Hospital Course: 58-year-old male with a H obesity, CAD, ischemic cardiomyopathy, hypertension, dyslipidemia, vdn-hzempas-iogafpljz diabetes mellitus who presents reporting his LifeVest discharge 4 times on the day of admission 12/24/2023. He had no symptoms. He reports doing some strenuous activity today. He canceled the LifeVest discharge and called EMS and was brought to [facility] ER. EMS reports a heart rate of 170. Further recent history as follows: The patient was vacationing in [place] and at the beginning of December 2023 he had chest pain and went to an ER and found to have NSTEMI. At that time the patient had a cardiac catheterization and he is status post 2 stents on 12/03/2023. Echo revealed ischemic cardiomyopathy with EF 25-30%. This is all new diagnosis to the patient. He was discharged on a LifeVest. He has been compliant with his medications since then but not his exercise restriction. The patient showed his iPhone to the ER physician Dr. Cannon and it is reported this appeared to be V-tach. The patient lives in [place] and his PCP is not in her network but he was set to see cardiology Dr. Garnett in a few weeks and therefore Dr. Garnett was consulted. EKG in the ER demonstrating normal sinus rhythm with multiple PVCs. Intraventricular conduction delay. Potassium 3.8. Will check a magnesium as well. Amiodarone infusion started. Cardiology consultation appreciated. Follow the recommendations. Agree with those. Patient reports he is on Brilinta so will restart that in addition to the aspirin which has already been started. Continue atorvastatin. Discontinue lisinopril and start Entresto. Continue Coreg and Jardiance. Plan to transition to p.o. amiodarone in the morning. Admit to medical floor with telemetry. Accu-Cheks a.c. HS and low- dose insulin sliding scale. 12/24: Cardiology was consulted, started on Amiodarone drip, since no arrhythmias until this evening will d/c the drip and transitioned to oral.Will continue Life Vest upon discharge. Also d/c lisinopril and started Entresto 24- 26 mg BID by this evening. 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 Also advised to see the senior microsoft consultant for his diabetes and if possible try to initiated Repatha. Status at Discharge Cognitive/behavioral status at discharge: Stable Time Spent with Patient Time attestation: Total time spent providing and/or coordinating discharge services: 45 minutes Exam Const: General: comfortable and no acute distress Other: A&O x3 HENMT: Mouth: Yes moist mucous membranes Eyes: Pupils: Equal, round and reactive pupils present Neck: Neck: supple Resp: Effort & Inspection: normal respiratory effort Auscultation: clear to auscultation bilaterally Cardio: Rate: regular rate Rhythm: regular rhythm Heart sounds: no gallops, no murmurs and no rubs GI: Other: Protuberant abdomen : General: Yes bladder normal to palpation Neuro: Cranial nerves: Yes Equal, round and reactive pupils present Motor exam (neuro): 5/5 motor strength present throughout Extrem: General: no edema Other: Pedal pulses palpable DS: Data Data Completed and Pending Labs on day of discharge: Labs from last 24 hours 12/25/23 12/25/23 12/25/23 16:33 11:18 07:34 WBC RBC Hgb Hct MCV MCH MCHC RDW Plt Count MPV Immature Gran % (Auto) Neut % (Auto) Lymph % (Auto) [place] % (Auto) Eos % (Auto) Baso % (Auto) Lymph # (Auto) [place] # (Auto) Eos # (Auto) Baso # (Auto) Abs Immat Gran (auto) Absolute Neuts (auto) Absolute Nucleated RBC Nucleated RBC % PT INR APTT Sodium Potassium Chloride Carbon Dioxide Anion Gap BUN Creatinine Estim Creat Clear Calc Estimated GFR Glucose POC Capillary Glucose 121 H 141 H 149 H Calcium Magnesium Total Bilirubin AST ALT Alkaline Phosphatase Troponin I Total Protein Albumin Lipase TSH (Reflex) 12/25/23 12/25/23 12/24/23 04:40 04:39 20:54 WBC RBC Hgb Hct MCV MCH MCHC RDW Plt Count MPV Immature Gran % (Auto) Neut % (Auto) Lymph % (Auto) [place] % (Auto) Eos % (Auto) Baso % (Auto) Lymph # (Auto) [place] # (Auto) Eos # (Auto) Baso # (Auto) Abs Immat Gran (auto) Absolute Neuts (auto) Absolute Nucleated RBC Nucleated RBC % PT INR APTT Sodium 136 L Potassium 3.8 Chloride 101 Carbon Dioxide 28 Anion Gap 7 BUN 13 Creatinine 0.90 Estim Creat Clear Calc 80 Estimated GFR > 60 Glucose 129 H POC Capillary Glucose 260 H Calcium 8.5 Magnesium 2.2 Total Bilirubin AST ALT Alkaline Phosphatase Troponin I Total Protein Albumin Lipase TSH (Reflex) 1.680 12/24/23 12/24/23 18:04 18:03 WBC 6.6 RBC 5.32 Hgb 17.2 Hct 46.7 MCV 87.8 MCH 32.3 MCHC 36.8 H RDW 13.2 Plt Count 158 MPV 10.0 Immature Gran % (Auto) 0.6 H Neut % (Auto) 47.3 Lymph % (Auto) 38.4 [place] % (Auto) 7.9 Eos % (Auto) 5.2 H Baso % (Auto) 0.6 Lymph # (Auto) 2.53 [place] # (Auto) 0.5 Eos # (Auto) 0.3 Baso # (Auto) 0.0 Abs Immat Gran (auto) 0.04 H Absolute Neuts (auto) 3.1 Absolute Nucleated RBC 0.000 Nucleated RBC % 0.0 PT 13.2 INR 1.0 APTT 24.3 Sodium 137 Potassium 3.8 Chloride 102 Carbon Dioxide 25 Anion Gap 10 BUN 13 Creatinine 0.80 Estim Creat Clear Calc 89 Estimated GFR > 60 Glucose 143 H POC Capillary Glucose Calcium 9.1 Magnesium 2.2 Total Bilirubin 1.3 AST 26 ALT 33 Alkaline Phosphatase 68 Troponin I < 0.012 Total Protein 8.0 Albumin 4.7 Lipase 198 TSH (Reflex) Discharge Plan Discharge Attending physician on discharge: Oral Prater Consulting providers: Gilson Garnett Discharging Clinician: Oral Prater Anticipated Discharge Date/Time: 12/25/23 18:04 Patient Disposition: Home, Self-Care Activity: as tolerated Diet: heart healthy and diabetic Discharge Instructions: Patient needs continue to wear LifeVest Advised to follow-up with senior microsoft consultant for his diabetic and if possible to start Repatha Patient needs to follow up with 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 Garnett The event of chest pain, palpitation or diaphoresis please visit the ED immediately Patient Instructions: Antibiotic Form, Telemetry Monitoring (GEN), Tachycardia (ED) Stand Alone Forms: General Discharge Information Follow-up/Referrals: Carmen,Nato Matson MD [Primary Care Provider] - 1 Week Gilson Garnett DO [Physician] - 1 Week Discharge Medications: New Jardiance 10 mg Tablet 10 mg PO DAILY Qty: 30 0RF Entresto 24-26 mg Tablet 1 tablet PO Q12HR Qty: 30 0RF amiodarone [Pacerone] 200 mg Tablet 200 mg PO BID Qty: 30 0RF Continued aspirin [Adult Low Dose Aspirin] 81 mg tablet,delayed release (DR/EC) 81 mg PO DAILY atorvastatin 40 mg tablet 40 mg PO QHS carvedilol 3.125 mg tablet 3.125 mg PO Q12H Rx Instructions: must administer with a meal/food dapagliflozin propanediol [Farxiga] 10 mg tablet 10 mg PO DAILY semaglutide 0.25 mg or 0.5 mg (2 mg/3 mL) pen injector 0.25 mg subcut WEEKLY Rx Instructions: for 4 weeks ticagrelor 90 mg tablet 90 mg PO Q12H Date of admission: 12/24/23 19:29 Primary Care Provider: CarmenNato Admitting Provider: Sharon Falcon Attending physician on admission: Sharon Falcon Condition: Stable Hospitalist MIPS Heart Failure (Qualifier) Patient has current or prior documentation of LVEF less than or equal to 40%, or mod/servere depressed LVSF?: Yes IF NO, STOP HERE If Yes, Heart Failure (Qualifier) Patient was prescribed or already taking an Angiotensin-Converting Enzyme (SYLVAIN) Inhibitor, or Antiotensin Receptor [place] (ARB): Yes Patient was prescribed or already taking bisoprolol, carvedilol, or sustained release metoprolol succinate: Yes
[2023-12-25] MEDS: INFLUENZA TRIVALENT VACCINE 45 MCG/0.5 ML SYRINGE IM (18:55)
== END 2023-12-25 19:10 | disposition home or self-care (01) ==
LOC: ANHED 19:29 → ANHIMU 21:47
PROVIDERS: Internal Medicine Cardiovascular Disease; Admitting Provider General Practice; Emergency Provider Emergency Medicine; PCP Family Medicine; Visit Provider General Practice
DX: I47.29 Other ventricular tachycardia (principal); I25.10 Atherosclerotic heart disease of native coronary artery without angina pectoris; I25.2 Old myocardial infarction; I10 Essential (primary) hypertension; E78.5 Hyperlipidemia, unspecified; I25.5 Ischemic cardiomyopathy; E11.9 Type 2 diabetes mellitus without complications; Z79.82 Long term (current) use of aspirin; Z79.84 Long term (current) use of oral hypoglycemic drugs; Z79.01 Long term (current) use of anticoagulants; Z95.811 Presence of heart assist device; Z23 Encounter for immunization
CPT/HCPCS: 36415; 71045; 80048; 80053; 82948; 83690; 83735; 84443; 84484; 85025; 85610; 85730; 90471; 90656; 93005; 96365; 96366; 99285; A9270; G0008; G0378; J0282; J1815

== ENCOUNTER 2024-03-14 07:13 | Outpatient (CLI) | payer OTHER, SELFPAY ==
--- NOTE | 2024-03-14 07:47 | ECHO_ITS ---
Patient Info Name: Ender Emmanuel Age: 59 years : 1965 Gender: Male Ht: 70 in Wt: 192 lbs BSA: 2.09 m2 HR: 68 bpm BP: 148 / 86 mmHg Technical Quality: Fair Exam Date: 03/14/2024 7:59 AM Exam Location: Echo Lab Patient Status: Outpatient Admit Date: 03/14/2024 Staff Ordering Physician: Gilson Garnett DO Driver Examiner: Regina Lewis RDCS, RT Attending Provider: Gilson Garnett DO Exam Type: CA echo dop color flow w con Study Info Complete two-dimensional, color flow and Doppler transthoracic echocardiogram is performed with contrast to opacify the left ventricle and to improve the deliniation of the left ventricle endocardial borders. Strain analysis performed. Contrast/Agitated Saline Contrast/Ag. Saline: Definity Amount: 2.00 ml Administered By: Regina Lewis RDCS New IV Access: Dorsum of Hand and Right Site Condition: No extravasation, Site dressing applied and IV removed Summary 1. Definity contrast administered improved wall motion interpretation. 2. Left ventricular chamber dimension is mildly enlarged. 3. Left ventricular septal wall motion is abnormal with septal motion related to bundle branch block. 4. Left ventricular systolic function is moderately globally reduced, estimated at 40-45%. 5. The left ventricular diastolic function is grade I diastolic dysfunction. 6. E/e' 9 is minimally elevated. 7. Global longitudinal strain is abnormal at -12.2%. 8. There is trace mitral valve regurgitation. 9. There is mild tricuspid valve regurgitation. 10. No pulmonary hypertension, estimated pulmonary arterial systolic pressure is 31 mmHg. Left Ventricle Left ventricular systolic function is moderately globally reduced, estimated at 40-45%. Definity contrast administered improved wall motion interpretation. E/e' 9 is minimally elevated. Global longitudinal strain is abnormal at -12.2%. Left ventricular chamber dimension is mildly enlarged. Left ventricular septal wall motion is abnormal with septal motion related to bundle branch block. The left ventricular diastolic function is grade I diastolic dysfunction. Right Ventricle Right ventricular chamber dimension is normal. Right ventricular systolic function is normal. Left Atria Left atrial chamber dimension is normal. Right Atria Right atrial chamber dimension is normal. Aortic Valve The aortic valve is trileaflet. There is no aortic valve stenosis. There is no aortic valve regurgitation. Pulmonic Valve There is no pulmonic regurgitation. Mitral Valve There is no mitral valve stenosis. There is trace mitral valve regurgitation. Tricuspid Valve There is mild tricuspid valve regurgitation. No pulmonary hypertension, estimated pulmonary arterial systolic pressure is 31 mmHg. Pericardium/Pleural There is no pericardial effusion. Inferior Vena Cava Normal inferior vena cava with >50% collapse upon inspiration consistent with normal right atrial pressure, 5 mmHg. Aorta The aortic root size at the sinus of Valsalva is normal. Left Ventricular Outflow Tract Name Value Normal LVOT 2D LVOT Diameter 1.88 cm LVOT Doppler LVOT Peak Velocity 98.24 cm/s LVOT Peak Gradient 4 mmHg LVOT Mean Gradient 2 mmHg LVOT VTI 18.30 cm LVOT VTI/AV VTI Ratio 1.00 LVOT Stroke Volume 50.87 ml LVOT CO 3.61 l/min LVOT CI 1.73 L/min/m2 Pulmonic Valve Name Value Normal RVOT Doppler RVOT Peak Gradient 2 mmHg PV Doppler PV Peak Velocity 158.87 cm/s PV Peak Gradient 10 mmHg Mitral Valve Name Value Normal MV Doppler MV Decel [place] 336.01 cm/s2 MV PHT 0 s MV Area (PHT) 4.68 cm2 4.00-5.00 MV Diastolic Function MV E Peak Velocity 54.52 cm/s MV A Peak Velocity 96.60 cm/s MV E/A 0.56 MV Decel Time 0 s Tricuspid Valve Name Value Normal TV Regurgitation Doppler TR Peak Velocity 252.97 cm/s TR Peak Gradient 22 mmHg Estimated PAP/RSVP RA Pressure 5 mmHg <=5 PA Systolic Pressure 31 mmHg <36 RV Systolic Pressure 31 mmHg <36 TV Annular TDI TV Lateral Luz Marina s' Velocity 8.26 cm/s 9.50-18.70 Aorta Name Value Normal Ascending Aorta Ao Root Diameter (MM) 3.24 cm Ao Root Diam Index (MM) 1.55 cm/m2 Aortic Valve Name Value Normal AV Doppler AV Peak Velocity 97.35 cm/s AV Peak Gradient 4 mmHg AV Mean Gradient 2 mmHg AV VTI 18.25 cm AV Area (Cont Eq VTI) 2.79 cm2 >=3.00 AV Area (Cont Eq Aaron) 2.81 cm2 AV V1/V2 Ratio 1.01 AV Regurgitation 2D LVOT Area 2.78 cm2 Ventricles Name Value Normal LV Dimensions 2D/MM IVS Diastolic Thickness (2D) 0.75 cm 0.60-1.00 IVS Diastole Thickness (MM) 0.78 cm 0.60-1.00 LVID Diastole (2D) 4.64 cm 4.20-5.80 LVID Diastole (MM) 5.16 cm 4.20-5.80 LVIW Diastolic Thickness (2D) 0.81 cm 0.60-1.00 LVIW Diastolic Thickness (MM) 0.97 cm 0.60-1.00 LVID Systole (2D) 3.69 cm 2.50-4.00 LVID Systole (MM) 3.97 cm 2.50-4.00 LVOT Diameter 1.88 cm LV Mass (2D Cubed) 116.02 g 88.00-224.00 LV Mass Index (2D Cubed) 0.01 g/cm2 0.00-0.01 Relative Wall Thickness (2D) 0.35 LV Mass (MM Cubed) 161.72 g 88.00-224.00 LV Mass Index (MM Cubed) 0.01 g/cm2 0.00-0.01 Relative Wall Thickness (MM) 0.38 LV Fractional Shortening/Ejection Fraction 2D/MM LV Fractional Shortening (2D) 20 % 25-43 LV Fractional Shortening (MM) 23 % 25-43 LV EF (MM Teicholz) 46 % 52-72 LV EF (2D Teicholz) 42 % 52-72 LV Diastolic Volume (4C MOD) 121.17 ml LV EF (4C MOD) 48 % LV Diastolic Volume (2C MOD) 103.98 ml LV EF (2C MOD) 36 % LV Diastolic Volume (BP MOD) 111.72 ml 62.00-150.00 LV Diastolic Volume Index (BP MOD) 0.05 l/m2 0.03-0.07 LV Systolic Volume (BP MOD) 65.38 ml 21.00-61.00 LV Systolic Volume Index (BP MOD) 0.03 l/m2 0.01-0.03 LV EF (BP MOD) 41 % 52-72 LV Diastolic Length (4C) 8.74 cm LV Systolic Length (4C) 7.74 cm LV Stroke Volume (4C MOD) 57.93 ml Atria Name Value Normal LA Dimensions LA Dimension (MM) 3.16 cm 3.00-4.10 LA Volume (4C A-L) 28.02 ml LA Volume (BP A-L) 31.84 ml RA Dimensions RA Area (4C) 12.66 cm2 <=18.00 EchoPAC Name Value Normal AutoEF LVCO_BiP_Q (Itgd3TOS) 3.29 l/min LVEF_BiP_Q (Hqld7BJN) 41 % LVSV_BiP_Q (Qibe2EVM) 47.44 ml LVVED_BiP_Q (Ekbl5YEA) 114.99 ml LVVES_BiP_Q (Tckc2HMK) 67.55 ml HR_4Ch_Q (Akoi4DGA) 71 1/min LVCO_4Ch_Q (Wktt7VKD) 2.93 l/min LVEF_4Ch_Q (Lywv2UOY) 39 % LVLd_4Ch_Q (Yqtz5WFS) 8.76 cm LVLs_4Ch_Q (Eyng0BCT) 8.14 cm LVSV_4Ch_Q (Jjqb6XVJ) 41.09 ml LVVED_4Ch_Q (Djfr2UCF) 104.71 ml LVVES_4Ch_Q (Tbtx7OMI) 63.62 ml HR_2Ch_Q (Pbfw6WGB) 68 1/min LVCO_2Ch_Q (Itac8NHO) 3.64 l/min LVEF_2Ch_Q (Tfea8DQO) 43 % LVLd_2Ch_Q (Ndrd8FNU) 8.61 cm LVLs_2Ch_Q (Hhtq9BCA) 8.27 cm LVSV_2Ch_Q (Vpdr1AMQ) 53.64 ml LVVED_2Ch_Q (Iekh8XDH) 123.77 ml LVVES_2Ch_Q (Txmd7KGS) 70.13 ml BECKIE AA peak sys SL (AWMA) 11 % AAS peak sys SL (AWMA) 14 % AI peak sys SL (AWMA) 13 % AL peak sys SL (AWMA) 12 % AP peak sys SL (AWMA) 22 % peak sys SL (AWMA) 7 % AVC (AWMA) 0 s BA peak sys SL (AWMA) 19 % BAS peak sys SL (AWMA) 17 % BI peak sys SL (AWMA) 10 % BL peak sys SL (AWMA) 17 % BP peak sys SL (AWMA) 12 % BS peak sys SL (AWMA) 13 % G peak SL(A2C) (AWMA) 12 % G peak SL(A4C) (AWMA) 11 % G peak SL(APLAX) (AWMA) 14 % G peak SL(Avg) (AWMA) 12 % MA peak sys SL (AWMA) 17 % MAS peak sys SL (AWMA) 10 % IA peak sys SL (AWMA) 11 % ML peak sys SL (AWMA) 17 % MP peak sys SL (AWMA) 16 % MS peak sys SL (AWMA) 10 % Report Signatures
[2024-03-14] MEDS: PERFLUTREN LIPID MICROSPHERES 1.5 ML VIAL DILUTED TO 10 ML TOTAL VOLUME IV PUSH (08:50)
--- NOTE | 2024-03-14 10:05 | IVDEFINITY ---
Prior to administration of IV Definity the patient was educated on the risks and benefits of the imaging enhancing agent including potential adverse side effects. The patient verbalized understanding. Allergies were verified. No exclusion criteria were identified and at least one of the following inclusion criteria were met: 1) physician request, 2) patient technically difficult to image (per the [place] [employer] Echocardi[employer] guidelines of two or more segments not discernable within the apical view), or 3) questionable left ventricular function. ?
== END 2024-03-14 07:14 | disposition home or self-care (01) ==
LOC: ANHCARD 07:13
PROVIDERS: PCP Family Medicine; Visit Provider Internal Medicine Cardiovascular Disease
DX: I25.5 Ischemic cardiomyopathy (principal); I44.7 Left bundle-branch block, unspecified; I50.20 Unspecified systolic (congestive) heart failure; I07.1 Rheumatic tricuspid insufficiency
CPT/HCPCS: C8929; Q9957

== ENCOUNTER 2024-04-21 11:15 | Outpatient (RCR) | payer OTHER, SELFPAY | END 2024-04-21 13:06 | disposition home or self-care (01) | LOC: ANHCPREHAB 11:15 | PROVIDERS: PCP Family Medicine; Visit Provider Internal Medicine Cardiovascular Disease | DX: Z98.61 Coronary angioplasty status (principal); I50.9 Heart failure, unspecified | CPT/HCPCS: 93798 ==

== ENCOUNTER 2024-07-19 07:32 | Outpatient (CLI) | payer OTHER, SELFPAY ==
--- NOTE | 2024-07-19 07:36 | ECHO_ITS ---
Patient Info Name: Ender Emmanuel Age: 59 years : 1965 Gender: Male Ht: 70 in Wt: 195 lbs BSA: 2.11 m2 HR: 66 bpm BP: 138 / 86 mmHg Technical Quality: Fair Exam Date: 07/19/2024 7:47 AM Patient Status: O Admit Date: 07/19/2024 Exam Type: CA echo dop color flow w con Complete two-dimensional, color flow and Doppler transthoracic echocardiogram is performed with contrast to opacify the left ventricle and to improve the deliniation of the left ventricle endocardial borders. Furnace Cooler: Jamia Greenfield Attending Provider: Gilson Garnett DO Contrast/Agitated Saline Contrast/Ag. Saline: Definity Amount: 2.00 ml IV Access Condition: patent with no signs of infiltration New IV Access: Left Site Condition: IV removed Summary 1. Definity contrast administered improved wall motion interpretation. 2. Left ventricular septal wall motion is abnormal with septal motion related to bundle branch block. 3. Left ventricular chamber dimension is mildly enlarged. 4. The left ventricular diastolic function is grade I diastolic dysfunction. 5. E/e' 7 is not elevated. 6. There is trace mitral valve regurgitation. 7. There is mild tricuspid valve regurgitation. 8. No pulmonary hypertension, estimated pulmonary arterial systolic pressure is 29 mmHg. 9. There is trace pulmonic regurgitation. Left Ventricle E/e' 7 is not elevated. Left ventricular chamber dimension is mildly enlarged. Left ventricular systolic function is mildly reduced, estimated at 45-50. Left ventricular septal wall motion is abnormal with septal motion related to bundle branch block. The left ventricular diastolic function is grade I diastolic dysfunction. Definity contrast administered improved wall motion interpretation. Anteroseptum and septum are hypokinetic. Right Ventricle Right ventricular chamber dimension is normal. Right ventricular systolic function is normal. Left Atria Left atrial chamber dimension is normal. Right Atria Right atrial chamber dimension is normal. Aortic Valve The aortic valve is trileaflet. There is no aortic valve stenosis. There is no aortic valve regurgitation. Pulmonic Valve There is trace pulmonic regurgitation. Mitral Valve There is no mitral valve stenosis. There is trace mitral valve regurgitation. Tricuspid Valve There is mild tricuspid valve regurgitation. No pulmonary hypertension, estimated pulmonary arterial systolic pressure is 29 mmHg. Pericardium/Pleural There is no pericardial effusion. Inferior Vena Cava Normal inferior vena cava with >50% collapse upon inspiration consistent with normal right atrial pressure, 5 mmHg. Aorta The aortic root size at the sinus of Valsalva is normal. Left Ventricular Outflow Tract Name Value Normal LVOT 2D LVOT Diameter 2.1 cm LVOT Doppler LVOT Peak Velocity 106 cm/s LVOT Peak Gradient 4 mmHg LVOT Mean Gradient 2 mmHg LVOT VTI 20 cm LVOT VTI/AV VTI Ratio 0.8 LVOT Stroke Volume 68 ml LVOT CO 14.7 l/min LVOT CI 7.0 l/min/m2 Pulmonic Valve Name Value Normal PV Doppler PV Peak Velocity 155 cm/s PV Peak Gradient 10 mmHg Mitral Valve Name Value Normal MV Diastolic Function MV E Peak Velocity 68 cm/s MV A Peak Velocity 76 cm/s MV E/A 0.9 MV Decel Time (PW) 204 ms MV Annular TDI MV E/e' (Septal) 9.7 MV E/e' (Lateral) 6.8 MV E/e' (Average) 8.2 Tricuspid Valve Name Value Normal TV Regurgitation Doppler TR Peak Velocity 245 cm/s TR Peak Gradient 24 mmHg Estimated PAP/RSVP RA Pressure 5 mmHg <=5 PA Systolic Pressure 29 mmHg <36 RV Systolic Pressure 29 mmHg <36 TV Annular TDI TV Lateral Lu[place] s' Velocity 10.4 cm/s >=9.5 Aorta Name Value Normal Ascending Aorta Ao Root Diameter (MM) 2.8 cm Ao Root Diam Index (MM) 1.3 cm/m2 Aortic Valve Name Value Normal AV Doppler AV Peak Velocity 129 cm/s AV Peak Gradient 7 mmHg AV Mean Gradient 5 mmHg AV VTI 25 cm AV Area (Cont Eq VTI) 2.8 cm2 >=3.0 AV Area (Cont Eq Aaron) 2.8 cm2 AV DI (Aaron) 0.82 AV Regurgitation 2D LVOT Area 3.4 cm2 Ventricles Name Value Normal LV Dimensions 2D/MM IVS Diastolic Thickness (2D) 0.8 cm 0.6-1.0 LVID Diastole (2D) 3.9 cm 4.2-5.8 LVIW Diastolic Thickness (2D) 0.9 cm 0.6-1.0 LVID Systole (2D) 3.1 cm 2.5-4.0 LVOT Diameter 2.1 cm LV Mass (2D Cubed) 97.23 g 88.00-224.00 LV Mass Index (2D Cubed) 46 g/m2 49-115 Relative Wall Thickness (2D) 0.46 <=0.42 LV Fractional Shortening/Ejection Fraction 2D/MM LV Fractional Shortening (2D) 20 % 25-43 LV EF (2D Teichholz) 41 % LV Diastolic Volume (4C MOD) 121 ml LV EF (4C MOD) 54 % LV Diastolic Volume (2C MOD) 92 ml LV EF (2C MOD) 62 % LV Diastolic Volume (BP MOD) 106 ml 62-150 LV Diastolic Volume Index (BP MOD) 50 ml/m2 34-74 LV Systolic Volume (BP MOD) 46 ml 21-61 LV Systolic Volume Index (BP MOD) 22 ml/m2 11-31 LV EF (BP MOD) 56 % 52-72 LV Diastolic Length (4C) 8.5 cm LV Systolic Length (4C) 7.4 cm LV Stroke Volume (4C MOD) 66 ml RV Dimensions 2D/MM RVID Diastole (2D) 4.5 cm 2.1-3.5 Atria Name Value Normal LA Dimensions LA Dimension (MM) 3.2 cm 3.0-4.0 LA Volume (4C A-L) 45 ml LA Volume (BP A-L) 40 ml RA Dimensions RA Systolic Major [place] Length (4C) 4.3 cm 2.1-2.7 RA Area (4C) 12.3 cm2 <=18.0 Report Signatures
--- OUTSIDE RECORDS SUMMARY | 2024-07-19 07:37 | XMS_ITS | Clinical Summary ---
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 This disclosure is being madepursuant to the Care Everywhere program and may not contain all information available regarding this patient. Last updated 17.[facility] [employer] Allergies Active Allergy Reactions Criticality Noted Date Comments Metoprolol Itching,Rash Medium 06/13/2014 Medications * Be aware that medications may not be up to date on this document. Alwaysverify current medications with the patient. atorvastatin (Lipitor) 10 MG tablet 11/26/2022 Active lisinopril (Prinivil; Zestril) 5 MG tablet 11/23/2022 Active metFORMIN (Glucophage) 500 MG tablet Take 1 (one) tablet by mouth 2 times daily with morning and evening meal 11/27/2021 Active dapagliflozin propanediol (Farxiga) 10 MG tablet Take 1 (one) tablet by mouth once daily 02/25/2023 Active Active Problems Problem Noted Date Diagnosed Date Essential (primary) hypertension 02/02/2023 Type 2 diabetes mellitus wit hout complication, without long-term current use of insulin 11/27/2021 05/18/2023 Not immune to hepatitis B virus 03/02/2021 Annual physical exam -[facility] nt 11/28/2020 Ventricular ectopy 03/02/2012 Overview (12/18/2020): Trigeminy, bigeminy, frequent PVC's. possibly due to caffeine. 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 Negative Cath Immunizations Immunization Administration Dates Next Due INFLUENZA VACCINE 12/25/2017, 7,12/08/2014,2014 PNEUMOCOCCAL PPSV23 06/11/2014,06/11/2014 TDAP (7yrs+) 06/14/2016,03/26/2006 iNFLUENZA VACCINE, RECOM-LEGGETT, QUADR. (FLUBLOCK QUADRIVALENT; 18Y+) (RIV4) 11/27/2021,12/08/2018 Family History Medical History Relation Name Comments Other - Cardiac Brother 3 [place] Diabetes - Type 2 Father Other - Cardiac Father CABG x 4 Dementia Mother from a fall Other - Cardiac Sister 2 Relation Name Status Comments Brother 1 Alive Brother 2 Alive Brother 3 Alive Father Maternal Grandfather Maternal Grandmother Mother Paternal Grandfather Paternal Grandmother Sister 1 Alive Sister 2 Sister 3 Alive Social History Tobacco Use Types Packs/Day Years Used Date Smoking Tobacco: Former Cigarettes 1 - 1973 Smokeless Tobacco: Never Tobacco Cessation:Counseling Given: Yes Comments:smoker 2 years, quit 1973 Sex and Gender Information Value Date Recorded Sex Assigned at Not on file Legal Sex Male 12:19 PM CDT Gender Identity Not on file Sexual Orientation Not on file Last Filed Vital Signs Vital Sign Reading Time Taken Comments Blood Pressure 122/70 02/02/2023 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 Pulse 82 02/02/2023 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 Temperature - - Respiratory Rate 16 02/02/2023 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 Oxygen Saturation 98% 02/02/2023 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 Inhaled Oxygen Concentration - - Weight 87.9 kg (193 lb 12.8 oz) 02/02/2023 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 Height 176.5 cm (5' 9.5 ) 02/02/2023 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 Body Mass Index 28.21 02/02/2023 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 Plan of Treatment Health Maintenance Due Date Last Done Comments COLOGUARD (AGES 45-75) - COLON CA SCREENING 1965 COLON MONITORING 1964 COLONOSCOPY - COLON CA SCREENING 1964 CT COLONOGRAPHY - COLON CA SCREENING 1965 Colorectal Cancer Screening 1965 FIT - COLON CA SCREENING 1964 FLEX SIG - COLON CA SCREENING 1964 HIV SCREENING 02/27/1979 ZOSTER VACCINE (1 of 2) 02/27/2014 PNEUMOCOCCAL VACCINE 50+ (2 of 2 - PCV) 06/12/2015 06/11/2014, 06/11/2014 DIABETES RETINOPATHY SCREENING 12/18/2020 DIABETES-FOOT EXAM WITH MONOFILAMENT 12/18/2020 DIABETES-HGB A1C 05/04/2023 02/02/2023, , 03/19/2022, Additional history exists COVID-19 VACCINE ( season) 2023 12/14/2020, 03/12/2020, 02/20/2020 DIABETES-SERUM CREATININE 12/24/20232022, 03/11/2022, 11/20/2021, Additional history exists Respiratory Syncytial Virus (RSV) Vaccine Pt: or over 60 yrs (1 - Risk 60-74 years 1-dose series) 2024 DEPRESSION SCREENING 03/02/2024 DIABETES - URINE PROTEIN SCREENING 03/02/2024 INFLUENZA VACCINE (Season Ended) 2024 11/27/2021, 12/08/2018, 12/25/2017, Additional history exists DTAP/TDAP/TD VACCINES (3 - Td or Tdap) 06/14/2026 06/14/2016, 03/26/2006 HEPATITIS C SCREENING Completed 11/20/2021 HEPATITIS B VACCINE Aged Out No longe r eligible based on patient's age to complete this topic HIB VACCINE Aged Out No longer eligi ble based on patient's age to complete this topic HPV VACCINE Aged Out No longer eligi ble based on patient's age to complete this topic MENINGOCOCCAL (Group B) VACCINE SHARED DECISION-MAKING Aged Out No longer eligible based on patient's age to complete this topic MENINGOCOCCAL GROUPS A/C/Y/W VACCINE Aged Out No longer eligible based on patient's age to complete this topic Procedures Procedure Name Priority Date/Time Associated Diagnosis Comments HEMOGLOBIN A1C - POINT OF CARE (AMB) Routine 02/02/2023 Annual physical exam -[facility] COMPREHENSIVE METABOLIC PANEL Routine 12/23/2022 6:25 AM CDT Annual physical exam HEPATITIS C ANTIBODY Routine 11/20/2021 7:36 AM CDT Annual physical exam -[facility] Department from Last 3 Months or Most Recently Relevant to Health Maintenance Results * HEMOGLOBIN A1C - POINT OF CARE (AMB) (02/02/2023) Hemoglobin A1c POCT 11.0 % Expiration Date 06/12/24 Lot # [id number] QC Verified Yes Yes Blood BLOOD SPECIMEN / Unknown 02/02/2023 Sindhu Arnold MD LAB - POINT OF CARE ORDERABLES Final Result * (ABNORMAL) COMPREHENSIVE METABOLIC PANEL (12/23/2022 6:25 AM CDT) Glucose 244(H) 70 - 99 mg/dL [facility] ACCOUNT BILL BUN 16 6 - 24 mg/dL [facility] ACCOUNT BILL Creatinine 1.03 0.76 - 1.27 mg/dL [facility] ACCOUNT BILL eGFR by CKD-EPI 84 >59 mL/min/1.7 3 [facility] ACCOUNT BILL BUN/Creatinine Ratio 16 9 - 20 [facility] ACCOUNT BILL Sodium 139 134 - 144 mmol/L [facility] ACCOUNT BILL Potassium 4.4 3.5 - 5.2 mmol/L [facility] ACCOUNT BILL Chloride 99 96 - 106 mmol/L [facility] ACCOUNT BILL CO2 23 20 - 29 mmol/L [facility] ACCOUNT BILL Calcium 9.0 8.7 - 10.2 mg/dL [facility] ACCOUNT BILL Protein Total 6.8 6.0 - 8.5 g/dL [facility] ACCOUNT BILL Albumin 4.5 3.8 - 4.9 g/dL [facility] ACCOUNT BILL Globulin Total 2.3 1.5 - 4.5 g/dL [facility] ACCOUNT BILL Albumin/Globulin Ratio 2.0 1.2 - 2.2 [facility] ACCOUNT BILL Bilirubin Total 1.0 0.0 - 1.2 mg/dL [facility] ACCOUNT BILL Alkaline Phosphatase 89 44 - 121 IU/L [facility] ACCOUNT BILL AST 16 0 - 40 IU/L [facility] ACCOUNT BILL ALT 23 0 - 44 IU/L [facility] ACCOUNT BILL Comment:FASTING Blood BLOOD SPECIMEN / Unknown 12/23/2022 6:25 AM CDT 12/23/2022 Narrative Resulting Agency Comment Lab Testing performed at: [address] [id number] Sindhu Arnold MD LAB - CHEMISTRY ORDERABLES Deloris l Result Performing Organization Address [facility] Co de Phone Number [facility] ACCOUNT BILL [address] [place] [address] * HEPATITIS C ANTIBODY (11/20/2021 7:36 AM CDT) Hepatitis C Antibody <0.1 0.0 - 0.9 s/co ratio [facility] ACCOUNT BILL Comment: Negative: < 0.8 Indeterminate: 0.8 - 0.9 Positive: > 0.9 . HCV antibody alone does not differentiate between previous resolved infection and active infection. The CDC and current clinical guidelines recommend that a positive HCV antibody result be followed up with an HCV RNA test to support the diagnosis of acute HCV infection. [facility] offers Hepatitis C Virus (HCV) RNA, Diagnosis, MIGUE ([id number]) and Hepatitis C Virus (HCV) Antibody with reflex to Quantitative Real-time PCR ([id number]). FASTING Blood BLOOD SPECIMEN / Unknown 11/20/2021 7:36 AM CDT 11/21/2021 Narrative Resulting Agency Comment Lab Testing performed at: [address] [id number] Eleazar Almazan MD LAB - CHEMISTRY ORDERABLES Fi nal Result [facility] ACCOUNT BILL [address] [place] [address] from Last 3 Months or Most Recently Relevant to Health Maintenance Insurance SELF PAY NO INSURANCE Member Subscriber Plan / Payer (Ef fective for All Dates) Name:Ender Emmanuel Member ID:Not on file Relation to Subscriber:Self Name:Ender Emmanuel Subscriber ID:Not on file Payer ID:Not on file Group ID:Not on file Type:Self Pay Address: [place], [place] Care Teams Pipe Bowl Paint Trimmer Relationship Specialty Start Date End Date Art Raymundo MD [address] [address] [place] [id number] PCP - General Family Medicine 12/13/20
--- OUTSIDE RECORDS SUMMARY | 2024-07-19 07:37 | XMS_ITS | Clinical Summary ---
Author Organization 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 WEIGHER Gender Identity Not on file Sexual Orientation Not on file Plan of Treatment Health Maintenance Due Date Last Done Comments Hepatitis C Virus (HCV) Screening 1965 TdaP Immunization 1965 Colonoscopy 02/27/2009 Colorectal Cancer Screening 02/27/2009 Cologuard 02/27/2014 Immunochemical Fecal Occult Blood 02/27/2014 Zoster Immunization (1 of 2) 02/27/2014 Pneumococcal Immunization (5 0+ years) (2 of 2 - PCV) 06/12/2015 06/11/2014 PSA Discussion 02/27/2019 Influenza Immunization (#1) 11/01/202310/2018, 12/08/2014 SARS-COV-2 Immunization ( - season) 2023 Respiratory Syncytial Virus (RSV) Immunization (Adult) (1 - 1-dose 75+ series) 02/27/2039 Pneumococcal Immunization Combined Discontinued 06/11/2014 Hepatitis B Immunization Aged Out No longer eligible based on patient's age to complete this topic Meningococcal Immunization (ACWY) Aged Out No longer eligible based on patient's age to complete this topic Rotavirus Immunization Aged Out No lo nger eligible based on patient's age to complete this topic
[2024-07-19] MEDS: PERFLUTREN LIPID MICROSPHERES 1.5 ML VIAL DILUTED TO 10 ML TOTAL VOLUME IV PUSH (08:30)
--- NOTE | 2024-07-19 08:58 | IVDEFINITY ---
Prior to administration of IV Definity the patient was educated on the risks and benefits of the imaging enhancing agent including potential adverse side effects. The patient verbalized understanding. Allergies were verified. No exclusion criteria were identified and at least one of the following inclusion criteria were met: 1) physician request, 2) patient technically difficult to image (per the [place] [employer] guidelines of two or more segments not discernable within the apical view), or 3) questionable left ventricular function. ?
== END 2024-07-19 07:33 | disposition home or self-care (01) ==
LOC: ANHCARD 07:34
PROVIDERS: PCP Family Medicine; Visit Provider Internal Medicine Cardiovascular Disease
DX: I25.5 Ischemic cardiomyopathy (principal)
CPT/HCPCS: C8929; Q9957